=== PATIENT | male | born 1985 | race Caucasian/White ===

== ENCOUNTER 2022-09-05 13:53 | Emergency (ER) | payer OTHER ==
[~2022-09-05] VITALS: Ht 175.3 cm; Wt 90.7 kg
[2022-09-05] MEDS ORDERED: DICLOFENAC SODI75 MG PO (16:42)
== END 2022-09-05 16:57 | disposition home or self-care (01) ==
LOC: ER 13:53
DX: R07.89 Other chest pain (principal)